=== PATIENT | female | born 1970 | race Caucasian/White ===

== ENCOUNTER 2019-05-11 13:05 | Emergency (ER) | payer MEDICAID ==
[~2019-05-11] VITALS: Ht 157.5 cm; Wt 77.3 kg
[2019-05-11 13:09] VITALS: BP 104/53
== END 2019-05-11 15:10 | disposition home or self-care (01) ==
LOC: EMS 13:07
DX: S69.91XA Unspecified injury of right wrist, hand and finger(s), initial encounter (principal); Z88.1 Allergy status to other antibiotic agents; W26.8XXA Contact with other sharp object(s), not elsewhere classified, initial encounter; Y93.89 Activity, other specified; Y92.89 Other specified places as the place of occurrence of the external cause; Y99.8 Other external cause status